=== PATIENT | female | born 1945 | race Caucasian/White ===

== ENCOUNTER 2022-04-02 10:12 | Day surgery (SDC) | payer MEDICARE, BC ==
[~2022-04-02] VITALS: Ht 162.6 cm; Wt 68.9 kg
[2022-04-02] VITALS (12 sets, daily range): BP systolic 103–140; BP diastolic 54–73
[~2022-04-02 10:12] MED LIST: LISI-644 PO; METF-438 PO; SIMV-342 PO
[2022-04-02] MEDS ORDERED: MIDAZolam 1mg/ml 10ml vial IV ONE (10:35)
[2022-04-02] MEDS ORDERED: normal saline 500ml IV soln 500 ML IV SCH (10:35)
[2022-04-02] MEDS ORDERED: normal saline 1000ml 1,000 ML IV SCH (10:35)
[2022-04-02] MEDS ORDERED: fentaNYL/PF 50MCG/1 ML 2ML syringe IV ONE (10:35)
[2022-04-02] MEDS ORDERED: LIRA0.6P2 SQ (10:44)
[2022-04-02] MEDS ORDERED: vitamin d (10:44)
[2022-04-02] MEDS ORDERED: PREVCR VG (10:44)
[2022-04-02] MEDS ORDERED: LOSA25TA41 PO (10:44)
[2022-04-02] MEDS ORDERED: CYAN10007 IM (10:44)
[2022-04-02] MEDS ORDERED: DILT120C94 PO (10:44)
[2022-04-02] MEDS ORDERED: APIX2.5T PO (10:44)
[2022-04-02] MEDS ORDERED: MULT-1085 PO (10:44)
[2022-04-02] MEDS ORDERED: SPIR1TAB4 PO (10:44)
== END 2022-04-02 14:10 | disposition home or self-care (01) ==
LOC: SSTAY O 10:12
PROVIDERS: ATTEND Student in an Organized Health Care Education/Training Program
DX: I48.91 Unspecified atrial fibrillation (principal); E11.9 Type 2 diabetes mellitus without complications; I10 Essential (primary) hypertension; Z88.8 Allergy status to other drugs, medicaments and biological substances; Z79.899 Other long term (current) drug therapy; Z98.890 Other specified postprocedural states
CPT/HCPCS: 92960; 93005; J2250; J3010; J7030; A4620

== ENCOUNTER 2022-05-01 11:21 | Outpatient (CLI) | payer MEDICARE, BC ==
[~2022-05-01 11:21] MED LIST changes: +APIX2.5T PO; +CYAN10007 IM; +DILT120C94 PO; +LIRA0.6P2 SQ; -LISI-644 PO; +LOSA25TA41 PO; +MULT-1085 PO; +PREVCR VG; +SPIR1TAB4 PO; +vitamin d
[2022-05-01 12:29] LABS: APTT 30 SECONDS (22-32); BASOPHILS # (AUTO) 0.1 X10'3 (0-0.2); BASOPHILS % (AUTO) 0.8 % (0-1); EOSINOPHILS # (AUTO) 0.2 X10'3 (0-0.9); EOSINOPHILS % (AUTO) 2.6 % (0-6); HEMATOCRIT 36.2 % (35.0-45.0); HEMOGLOBIN 12.5 g/dl (12.0-16.0); LYMPHOCYTES # (AUTO) 1.1 X10'3 (1.1-4.8); LYMPHOCYTES % (AUTO) 16.3 % (21-51); MEAN CORPUSCULAR HEMOGLOBIN 29.9 PG (27.0-31.0); MEAN CORPUSCULAR HGB CONC 34.5 g/dL (33.0-36.5); MEAN CORPUSCULAR VOLUME 86.7 FL (78-98); MONOCYTES # (AUTO) 0.5 X10'3 (0-0.9); MONOCYTES % (AUTO) 7.6 % (2-12); NEUTROPHILS % (AUTO) 72.7 % (42-75); PLATELET COUNT 294 X10'3 (140-440); RED BLOOD COUNT 4.18 X10'6 (4.20-5.60); RED CELL DISTRIBUTION WIDTH 17.8 % (11.5-14.5); WHITE BLOOD COUNT 6.8 X10'3 (4.5-11.0)
[2022-05-01 12:47] LABS: ALBUMIN 4.2 G/DL (3.4-5.0); ANION GAP 9 (8-16); BLOOD UREA NITROGEN 32 MG/DL (7-18); BUN/CREATININE RATIO 30.2 (6.6-38.0); CHLORIDE 103 MMOL/L (99-107); CREATININE 1.06 MG/DL (0.40-0.90); GLUCOSE 125 MG/DL (70-104); POTASSIUM 4.2 MMOL/L (3.5-5.1); SODIUM 141 MMOL/L (135-145); TOTAL CARBON DIOXIDE 28.7 MMOL/L (24-32); eGFR 50 ML/MIN
== END 2022-05-01 23:59 | disposition home or self-care (01) ==
LOC: LAB 11:21
PROVIDERS: ATTEND Internal Medicine Interventional Cardiology
DX: I11.0 Hypertensive heart disease with heart failure (principal); I48.91 Unspecified atrial fibrillation; R60.9 Edema, unspecified; R94.31 Abnormal electrocardiogram [ECG] [EKG]; I42.9 Cardiomyopathy, unspecified; E11.9 Type 2 diabetes mellitus without complications; G47.10 Hypersomnia, unspecified; I50.22 Chronic systolic (congestive) heart failure; E78.5 Hyperlipidemia, unspecified; Z79.01 Long term (current) use of anticoagulants
CPT/HCPCS: 36415; 80048; 84439; 84443; 85025; 85610; 85730

== ENCOUNTER 2022-05-07 10:28 | Day surgery (SDC) | payer MEDICARE, BC ==
[~2022-05-07] VITALS: Ht 162.6 cm; Wt 71.2 kg
[2022-05-07] VITALS (8 sets, daily range): BP systolic 116–159; BP diastolic 46–91
[2022-05-07] MEDS ORDERED: normal saline 1000ml 1,000 ML IV SCH (11:00)
[2022-05-07] MEDS ORDERED: MIDAZolam 1mg/ml 10ml vial IV ONE (11:00)
[2022-05-07] MEDS ORDERED: fentaNYL/PF 50MCG/1 ML 2ML syringe IV ONE (11:00)
[2022-05-07 11:41] LABS: BASOPHILS % (AUTO) 0.8 % (0-1); EOSINOPHILS # (AUTO) 0.2 X10'3 (0-0.9); EOSINOPHILS % (AUTO) 2.9 % (0-6); HEMATOCRIT 35.1 % (35.0-45.0); HEMOGLOBIN 11.7 g/dl (12.0-16.0); LYMPHOCYTES # (AUTO) 0.8 X10'3 (1.1-4.8); LYMPHOCYTES % (AUTO) 14.9 % (21-51); MEAN CORPUSCULAR HEMOGLOBIN 29.5 PG (27.0-31.0); MEAN CORPUSCULAR HGB CONC 33.4 g/dL (33.0-36.5); MEAN CORPUSCULAR VOLUME 88.4 FL (78-98); MEAN PLATELET VOLUME 7.1 FL (7.4-10.4); MONOCYTES # (AUTO) 0.4 X10'3 (0-0.9); NEUTROPHILS # (AUTO) 3.9 X10'3 (1.8-7.7); NEUTROPHILS % (AUTO) 73.4 % (42-75); PLATELET COUNT 248 X10'3 (140-440); RED BLOOD COUNT 3.97 X10'6 (4.20-5.60); RED CELL DISTRIBUTION WIDTH 17.5 % (11.5-14.5); WHITE BLOOD COUNT 5.2 X10'3 (4.5-11.0)
[2022-05-07 11:49] LABS: ANION GAP 10 (8-16); BLOOD UREA NITROGEN 27 MG/DL (7-18); CALCIUM 9.2 MG/DL (8.5-10.1); CHLORIDE 105 MMOL/L (99-107); CREATININE 1.04 MG/DL (0.40-0.90); GLUCOSE 222 MG/DL (70-104); POTASSIUM 4.1 MMOL/L (3.5-5.1); SODIUM 142 MMOL/L (135-145); TOTAL CARBON DIOXIDE 26.8 MMOL/L (24-32); eGFR 51 ML/MIN
[2022-05-07] MEDS ORDERED: SACU1TAB PO (11:49)
[2022-05-07] MEDS ORDERED: METO-384 PO (11:49)
[2022-05-07] MEDS ORDERED: APIX5TAB3 PO (11:49)
[2022-05-07] MEDS ORDERED: AMIO200T61 PO (11:49)
== END 2022-05-07 13:55 | disposition home or self-care (01) ==
LOC: SSTAY O 10:28
PROVIDERS: ATTEND Student in an Organized Health Care Education/Training Program
DX: I48.91 Unspecified atrial fibrillation (principal); E11.9 Type 2 diabetes mellitus without complications; I11.0 Hypertensive heart disease with heart failure; I50.9 Heart failure, unspecified; I42.9 Cardiomyopathy, unspecified; Z79.899 Other long term (current) drug therapy; Z83.3 Family history of diabetes mellitus; Z88.8 Allergy status to other drugs, medicaments and biological substances; Z98.890 Other specified postprocedural states; Z79.84 Long term (current) use of oral hypoglycemic drugs
CPT/HCPCS: 36415; 80048; 82948; 85025; 85610; 92960; J2250; J3010; J7030; 93005; A4620

== ENCOUNTER 2023-07-14 07:56 | Day surgery (SDC) | payer MEDICARE, BC ==
[2023-07-10 15:58] LABS: BASOPHILS % (AUTO) 0.7 % (0-1); EOSINOPHILS # (AUTO) 0.1 X10'3 (0-0.9); EOSINOPHILS % (AUTO) 1.5 % (0-6); LYMPHOCYTES # (AUTO) 1.1 X10'3 (1.1-4.8); LYMPHOCYTES % (AUTO) 17.8 % (21-51); MEAN CORPUSCULAR HEMOGLOBIN 30.7 PG (27.0-31.0); MEAN CORPUSCULAR HGB CONC 33.9 g/dL (33.0-36.5); MEAN CORPUSCULAR VOLUME 90.7 FL (78-98); MEAN PLATELET VOLUME 6.4 FL (7.4-10.4); MONOCYTES # (AUTO) 0.5 X10'3 (0-0.9); MONOCYTES % (AUTO) 8.9 % (2-12); NEUTROPHILS # (AUTO) 4.3 X10'3 (1.8-7.7); NEUTROPHILS % (AUTO) 71.1 % (42-75); PRE OP HEMATOCRIT 37.4 % (35.0-45.0); PRE OP HEMOGLOBIN 12.7 g/dL (12.0-16.0); PRE OP PLATELET COUNT 328 X10'3 (140-440); PRE OP WHITE BLOOD COUNT 6.1 10'3 (4.8-10.8); RED BLOOD COUNT 4.12 X10'6 (4.20-5.60); RED CELL DISTRIBUTION WIDTH 14.5 % (11.5-14.5)
[2023-07-10 16:10] LABS: ALBUMIN 3.9 G/DL (3.4-5.0); ALBUMIN/GLOBULIN RATIO 1.2 (1.1-1.5); ALKALINE PHOSPHATASE 70 IU/L (46-116); BLOOD UREA NITROGEN 27 MG/DL (7-18); BUN/CREATININE RATIO 25.2 (10.0-20.0); CALCIUM 9.3 MG/DL (8.5-10.1); CHLORIDE 102 MMOL/L (99-107); CREATININE 1.07 MG/DL (0.40-0.90); PRE OP ALT 52 U/L (30-65); PRE OP ANION GAP 7 (8-16); PRE OP AST 17 U/L (10-37); PRE OP BILIRUB, TOTAL 0.7 MG/DL (0.0-1.0); PRE OP GLUCOSE 151 MG/DL (70-104); PRE OP POTASSIUM 4.1 MMOL/L (3.4-5.1); PRE OP SODIUM 138 MMOL/L (135-145); TOTAL CARBON DIOXIDE 29.3 MMOL/L (24-32); TOTAL PROTEIN 7.2 G/DL (6.4-8.2); eGFR 49 ML/MIN
[2023-07-14] VITALS (8 sets, daily range): BP systolic 105–117; BP diastolic 55–63; PULSE 56–63; RESP 12–16; TEMP 97.5; O2SAT 97–99
[~2023-07-14] VITALS: Ht 162.6 cm; Wt 64.9 kg
[~2023-07-14 07:56] MED LIST changes: +AMI200T PO; -APIX2.5T PO; +APIX5TAB3 PO; +DAPA10TA PO; -DILT120C94 PO; -LOSA25TA41 PO; -METF-438 PO; +METO-384 PO; +SACU1TAB7 PO; -SPIR1TAB4 PO; +SPIR25TA5 PO; -vitamin d
[2023-07-14] MEDS ORDERED: famotidine 20mg tablet PO ONE (08:54)
[2023-07-14] MEDS ORDERED: cefazolin 2gm/D5W 100mL 100 ML IV ONE (08:54)
[2023-07-14] MEDS ORDERED: ringers solution, lacted 1,000 ML IV SCH ×2 (08:54→11:05)
[2023-07-14] MEDS ORDERED: meperidine/PF 25mg/ml syringe IV PRN ×3 (11:05)
[2023-07-14] MEDS ORDERED: proCHLORperazine 10 MG/2 ml inj IV PRN (11:05)
[2023-07-14] MEDS ORDERED: morphine 4 MG/ML inj SYRINge IV PRN (11:05)
[2023-07-14] MEDS ORDERED: ondansetron/PF 4mg/2ml inj IV PRN (11:05)
[2023-07-14] MEDS ORDERED: morphine 2 MG/ML inj. syringe IV PRN (11:05)
[2023-07-14] MEDS ORDERED: midazolam 1 mg/ML 2ml injection ONE (11:19)
[2023-07-14] MEDS ORDERED: fentaNYL/PF 50MCG/1 ML 2ML syringe ONE (11:19)
[2023-07-14] MEDS ORDERED: propofol inj 20 ML IV ONE (11:48)
[2023-07-15] MEDS ORDERED: cefazolin 2gm/D5W 100mL 100 ML IV ONE (05:30)
== END 2023-07-14 13:04 | disposition home or self-care (01) ==
LOC: PAS 07:56
PROVIDERS: ATTEND Orthopaedic Surgery Hand Surgery
DX: R22.32 Localized swelling, mass and lump, left upper limb (principal); L72.0 Epidermal cyst; I10 Essential (primary) hypertension; E11.9 Type 2 diabetes mellitus without complications; E78.00 Pure hypercholesterolemia, unspecified; I48.91 Unspecified atrial fibrillation; Z79.01 Long term (current) use of anticoagulants; Z79.899 Other long term (current) drug therapy; Z98.890 Other specified postprocedural states; Z91.040 Latex allergy status; Z88.8 Allergy status to other drugs, medicaments and biological substances; Z82.5 Family history of asthma and other chronic lower respiratory diseases; Z82.49 Family history of ischemic heart disease and other diseases of the circulatory system
CPT/HCPCS: 11422; 36415; 80053; 82948; 85025; J0690; J2250; J2704; J3010; J7030; J7120; Z7506; Z7512; A4215; A4618; A6449; A7000